=== PATIENT | female | born 1985 | race Caucasian/White ===

== ENCOUNTER 2017-07-08 20:37 | Emergency (ER) | payer OTHER ==
[~2017-07-08] VITALS: Ht 165.1 cm; Wt 77.1 kg
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
[~2017-07-08 20:37] MED LIST: ALBUTEROL17 G1 IH; AZO; BACTRIM DS TABL1 TA1 PO; BACTRIM DS TABL1 TA2; BACTRIM DS TABL1 TAB PO; CLONAZEPAM0.5 MG PO; DEPO-PROVER150 MG/M1 IM; DIFLUCAN100 MG; KLONOPIN PO; NO MEDICATIONS; PHENERGAN DM1 ML PO; PHENERGAN25 MG PO; PREDNISONE PO; VICODIN 5/500 T1 TAB PO; VOLTAREN75 MG PO; [UNRECOGNIZED DRUG - REMARK] PO
[2017-07-08] MEDS ORDERED: CELEXA20 MG (20:46)
[2017-07-08] MEDS ORDERED: LEVOTHYROXINE25 MC1 (20:46)
[2017-07-08 21:23] LABS: URINE SOURCE CLEAN CATCH
[2017-07-08 21:26] LABS: URINE APPEARANCE CLEAR; URINE BLOOD 1+ (NEG); URINE COLOR YELLOW; URINE GLUCOSE NEG (NORM); URINE KETONE TRACE (NEG); URINE LEUKOCYTE ESTERASE NEG (NEG); URINE NITRATE NEG (NEG); URINE PH 5.5 (5-8); URINE PROTEIN NEG (NEG); URINE SPECIFIC GRAVITY >=1.030 (1.003-1.035); URINE UROBILINOGEN 0.2 MG/DL (NORM)
[2017-07-08 21:30] LABS: MICRO INDICATED? YES; URINE BILIRUBIN NEG (NEG)
[2017-07-08 21:32] LABS: URINE BACTERIA NEG (NEG); URINE MUCUS PRESENT; URINE SQUAMOUS EPITHELIAL CELL OCCAS /[HPF]; URINE WBC 0-2 /[HPF] (0-5)
[2017-07-08 21:57] LABS: HEMOGLOBIN 15.2 gm/dL (12.0-16.0); MEAN CELL VOLUME 92.5 FL (83-96); MEAN CORPUSCULAR HEMOGLOBIN 31.2 PG (28-34); MEAN CORPUSCULAR HGB CONC 33.8 g/dL (30-36); MEAN PLATELET VOLUME 8.7 FL (6.5-11.5); RED BLOOD COUNT 4.87 X10e (3.90-5.30); RED CELL DISTRIBUTION WIDTH 13.1 % (11.0-15.5); WHITE BLOOD COUNT 11.3 X10e3 (4.0-10.5)
[2017-07-08 22:12] LABS: ALBUMIN SERUM 4.4 g/dL (3.5-5.0); BILIRUBIN,TOTAL 0.5 mg/dL (0.2-2.0); CALCIUM SERUM 9.1 mg/dL (8.4-10.2); CREATININE SERUM 0.8 mg/dL (0.6-1.4); POTASSIUM 3.4 mmol/L (3.5-5.1); PROTEIN TOTAL SERUM 7.4 g/dL (6.0-8.3)
== END 2017-07-08 23:20 | disposition home or self-care (01) ==
LOC: SED 20:37
PROVIDERS: Emergency Medicine
DX: T65.91XA Toxic effect of unspecified substance, accidental (unintentional), initial encounter (principal); T23.571A Corrosion of first degree of right wrist, initial encounter; F17.210 Nicotine dependence, cigarettes, uncomplicated; W22.11XA Striking against or struck by driver side automobile airbag, initial encounter; Y92.410 Unspecified street and highway as the place of occurrence of the external cause; Z23 Encounter for immunization
CPT/HCPCS: 36415; 73110; 74022; 80053; 81003; 82150; 83690; 84703; 85027; 90471; 90715; 99284